=== PATIENT | female | born 1980 | race Caucasian/White ===

== ENCOUNTER 2023-01-22 15:06 | Emergency (ER) | payer OTHER ==
[~2023-01-22] VITALS: Ht 160 cm; Wt 72.1 kg
[~2023-01-22 15:06] MED LIST: MUCINEX1200 MG/BO PO; PROVENTIL17 G1; ULTRACET PO
[2023-01-22] MEDS ORDERED: PEPCID AC10 MG (15:23)
== END 2023-01-22 20:11 | disposition home or self-care (01) ==
LOC: ER 15:06
DX: M54.2 Cervicalgia (principal); R51.9 Headache, unspecified; Z88.6 Allergy status to analgesic agent